=== PATIENT | female | born 1970 | race Two or more races ===

== ENCOUNTER 2021-12-26 11:56 | Emergency (ER) | payer OTHER ==
[~2021-12-26] VITALS: Ht 160 cm; Wt 74.8 kg
[2021-12-26] MEDS ORDERED: METFORMIN HCL1000 MG (12:31)
[2021-12-26] MEDS ORDERED: LIPITOR40 M1 (12:32)
[2021-12-26] MEDS ORDERED: ZESTRIL5 MG PO (12:32)
== END 2021-12-26 16:40 | disposition home or self-care (01) ==
LOC: ER 11:56
DX: J40 Bronchitis, not specified as acute or chronic (principal); E11.9 Type 2 diabetes mellitus without complications; I10 Essential (primary) hypertension; Z20.822 Contact with and (suspected) exposure to COVID-19